=== PATIENT | female | born 1980 ===

== ENCOUNTER 2018-02-02 19:11 | Emergency (ER) | payer BC ==
[2018-02-02] MEDS ORDERED: Iohexol 240 (50 ml) PO ONE (21:22)
[2018-02-02] MEDS ORDERED: Lactated Ringer's 1,000 ML IV STA (21:24)
--- NOTE | 2018-02-02 21:35 | ED PDOC ---
HPI: Abdomen Time Seen by Provider: 02/02/18 20:40 Chief Complaint (Nursing): GI Problem Chief Complaint (Provider): bloody diarrhea History Per: Patient History/Exam Limitations: no limitations Onset/Duration Of Symptoms: Days (1 month), Gradual Outside of [place] travel?: Yes Other Location:: [place], early December Location Of Pain/Discomfort: RLQ, LLQ Quality Of Discomfort: Cramping Associated Symptoms: Diarrhea. denies: Fever, Chills, Nausea, Vomiting, Loss Of Appetite Exacerbating Factors: None Additional Complaint(s): Bloody stool for about a month. Initially associated with rectal discomfort. Seen by [facility] and rx'd hemorrhoid cream, which improved discomfort but now has episodic diarrhea and continued bloody stool. Over last week has developed abdominal crampy pain with the diarrhea as well. Has about 1-3 diarrheal bowel movements daily. Past Medical History Reviewed: Historical Data, Nursing Documentation, Vital Signs Vital Signs: Last Vital Signs Temp 98.4 F 02/03/18 00:52 Pulse 72 02/03/18 00:52 Resp 18 02/03/18 00:52 BP 102/68 02/03/18 00:52 Pulse Ox 100 02/06/18 22:00 - Medical History PMH: No Chronic Diseases - Family History Family History: States: No Known Family Hx - Social History Current smoker - smoking cessation education provided: No Alcohol: Social Drugs: Denies - Home Medications Home Medications: Ambulatory Orders Medication Instructions Recorded Ciprofloxacin [Cipro] 500 mg PO BID 7 Days tab 02/03/18 metroNIDAZOLE [Flagyl] 500 mg PO BID 7 Days tab 02/03/18 - Allergies Allergies/Adverse Reactions: Allergies Allergy/AdvReac Type Severity Reaction Status Date / Time pollen extracts Allergy ITCHING Verified 02/02/18 19:56 Review of Systems ROS Statement: Except As Marked, All Systems Reviewed And Found Negative (and as per HPI) Constitutional: Negative for: Fever, Weakness, Malaise Gastrointestinal: Positive for: Abdominal Pain, Diarrhea, Hematochezia, Rectal Pain. Negative for: Nausea, Vomiting, Constipation, Melena, Hematemesis Genitourinary Female: Negative for: Vaginal Bleeding Physical Exam - Reviewed Nursing Documentation Reviewed: Yes Vital Signs Reviewed: Yes - Physical Exam Appears: Positive for: Non-toxic, No Acute Distress Head Exam: Positive for: ATRAUMATIC, NORMOCEPHALIC Skin: Positive for: Warm, Dry Eye Exam: Positive for: EOMI, PERRL ENT: Negative for: Pharyngeal Erythema, Tonsillar Exudate Neck: Positive for: Painless ROM, Supple Cardiovascular/Chest: Positive for: Regular Rate, Rhythm, Chest Non Tender. Negative for: Murmur Respiratory: Positive for: Normal Breath Sounds. Negative for: Wheezing Gastrointestinal/Abdominal: Positive for: Bowel Sounds, Soft. Negative for: Tenderness, Mass, Distended, Guarding, Rebound Back: Positive for: Normal Inspection. Negative for: Decreased ROM Rectal: Positive for: Rectal Tone Is: (normal). Negative for: Hemorrhoids, Mass Extremity: Positive for: Normal ROM. Negative for: Deformity Lymphatic: Negative for: Adenopathy Neurologic/Psych: Positive for: Alert. Negative for: Motor/Sensory Deficits - Laboratory Results Result Diagrams: 02/02/18 21:50 02/02/18 21:50 - ECG O2 Sat by Pulse Oximetry: 100 Disposition - Clinical Impression Clinical Impression: Abdominal pain - Disposition Disposition: Transfer of Care Disposition Time: 00:00 Condition: STABLE Prescriptions: Ciprofloxacin [Cipro] 500 mg PO BID 7 Days tab metroNIDAZOLE [Flagyl] 500 mg PO BID 7 Days tab Patient Signed Over To: Flo Hussein Handoff Comments: Pending ER workup, reassessment and final ER disposition
[2018-02-02] MEDS ORDERED: Iohexol 240 (50 ml) ONE (21:39)
[2018-02-02 22:19] LABS: BASO # 0.1 K/uL (0.0-0.2); BASO % 0.7 % (0.0-2.0); EOS # 0.2 K/uL (0.0-0.7); EOS % 2.6 % (0.0-4.0); HEMOGLOBIN 14.1 g/dL (12.0-16.0); LYMPH # 2.9 K/uL (1.0-4.3); LYMPH % 36.9 % (20.0-40.0); MEAN CELL VOLUME 90.5 fl (81.0-99.0); MEAN CORPUSCULAR HEMOGLOBIN 30.5 pg (27.0-31.0); MEAN CORPUSCULAR HGB CONC 33.7 g/dL (33.0-37.0); MONO # 0.5 K/uL (0.0-0.8); NEUT # 4.1 K/uL (1.8-7.0); NEUT % 52.8 % (50.0-75.0); RBC 4.61 Mil/uL (3.80-5.20); RED CELL DISTRIBUTION WIDTH 13.6 % (11.5-14.5); WHITE BLOOD COUNT 7.8 K/uL (4.8-10.8)
[2018-02-02 22:30] LABS: INR 0.9 (0.9-1.2); PROTHROMBIN TIME 9.9 Seconds (9.8-13.1)
[2018-02-02 22:35] LABS: ALB/GLOB RATIO 1.1 (1.0-2.1); ALBUMIN 3.9 g/dL (3.5-5.0); ALT/SGPT 30 U/L (9-52); AST/SGOT 26 U/L (14-36); BLOOD UREA NITROGEN 14 mg/dl (7-17); GFR AFRICAN-AMERICAN > 60; GFR NON-AFRICAN AMERICAN > 60; LIPASE 63 U/L (23-300)
[2018-02-02] MEDS ORDERED: Iohexol 300 100 ML IJ ONE (23:38)
[2018-02-02] MEDS ORDERED: Sodium Chloride 0.9% 50 ML IV ONE (23:39)
--- NOTE | 2018-02-03 00:06 | ED PDOC ---
- Laboratory Results Result Diagrams: 02/02/18 21:50 02/02/18 21:50 - ECG O2 Sat by Pulse Oximetry: 100 Medical Decision Making Medical Decision Makin Patient signed out to this provider from Dr. Connor pending CT scan. 0038 CT FINDINGS: LIMITATIONS: Mild streak/motion artifact. LUNG BASES: No significant abnormality seen. ABDOMEN: LIVER: No acute abnormality of the liver identified. GALLBLADDER AND BILE DUCTS: No CT evidence of acute cholecystitis. No evidence of significant biliary ductal dilatation. PANCREAS: No CT evidence of acute pancreatitis. SPLEEN: No acute abnormality of the spleen identified. ADRENALS: No acute abnormality of the adrenal glands identified. KIDNEYS AND URETERS: No acute abnormality of the kidneys identified. No evidence of significant hydrouereteronephrosis. STOMACH AND BOWEL: Moderate wall thickening and enhancement of the distal sigmoid colon and rectum. Findings are suspicious for proctocolitis. Otherwise, no significant abnormality of the bowel is identified. No evidence of diffuse colitis/pancolitis. No evidence of bowel obstruction.. PELVIS: APPENDIX: Normal appendix is not seen, however, there are no significant inflammatory changes visualized in the expected location of the appendix to suggest appendicitis. Recommend clinical correlation. BLADDER: No acute abnormality of the bladder identified. REPRODUCTIVE:No acute abnormality of the reproductive organs is seen. No acute abnormality of the uterus identified. No evidence of large adnexal masses. ABDOMEN and PELVIS: INTRAPERITONEAL SPACE: No evidence of free intraperitoneal air or fluid. BONES/JOINTS: No acute fractures or other acute bony abnormality noted. SOFT TISSUES: No acute abnormality of the visualized soft tissues is seen. VASCULATURE: No evidence of abdominal aortic aneurysm. No evidence of periaortic hemorrhage. LYMPH NODES: No evidence of diffuse lymphadenopathy. IMPRESSION: - Findings suspicious for proctocolitis involving the distal sigmoid colon and rectum. Recommend clinical correlation. - Otherwise, no evidence of significant acute process. Appendix is not seen, however. - See above for remaining findings Scribe Attestation: Documented by Nevaeh Kyle acting as a scribe for Flo Hussein MD. Scrib[place]amie Attestation: All medical record entries made by the Scribe were at my direction and personally dictated by me. I have reviewed the chart and agree that the record accurately reflects my personal performance of the history, physical exam, medical decision making, and the department course for this patient. I have also personally directed, reviewed, and agree with the discharge instructions and disposition. Disposition - Disposition Forms: [employer] ([place])
--- NOTE | 2018-02-03 00:38 | CT ---
EXAM: CT Abdomen and Pelvis With Intravenous Contrast EXAM DATE/TIME: 02/02/2018 9:22 PM CLINICAL HISTORY: 37 years old, female; Pain; Abdominal pain; Localized; Lower; Additional info: Lower abd pain bloody stool TECHNIQUE: Axial computed tomography images of the abdomen and pelvis with intravenous contrast. All CT scans at this facility use one or more dose reduction techniques, viz.: automated exposure control; ma/kV adjustment per patient size (including targeted exams where dose is matched to indication; i.e. head); or iterative reconstruction technique. Coronal and sagittal reformatted images were created and reviewed. CONTRAST: 90 mL of [id number] administered intravenously. COMPARISON: No relevant prior studies available. FINDINGS: LIMITATIONS: Mild streak/motion artifact. LUNG BASES: No significant abnormality seen. ABDOMEN: LIVER: No acute abnormality of the liver identified. GALLBLADDER AND BILE DUCTS: No CT evidence of acute cholecystitis. No evidence of significant biliary ductal dilatation. PANCREAS: No CT evidence of acute pancreatitis. SPLEEN: No acute abnormality of the spleen identified. ADRENALS: No acute abnormality of the adrenal glands identified. KIDNEYS AND URETERS: No acute abnormality of the kidneys identified. No evidence of significant hydrouereteronephrosis. STOMACH AND BOWEL: Moderate wall thickening and enhancement of the distal sigmoid colon and rectum. Findings are suspicious for proctocolitis. Otherwise, no significant abnormality of the bowel is identified. No evidence of diffuse colitis/pancolitis. No evidence of bowel obstruction.. PELVIS: APPENDIX: Normal appendix is not seen, however, there are no significant inflammatory changes visualized in the expected location of the appendix to suggest appendicitis. Recommend clinical correlation. BLADDER: No acute abnormality of the bladder identified. REPRODUCTIVE:No acute abnormality of the reproductive organs is seen. No acute abnormality of the uterus identified. No evidence of large adnexal masses. ABDOMEN and PELVIS: INTRAPERITONEAL SPACE: No evidence of free intraperitoneal air or fluid. BONES/JOINTS: No acute fractures or other acute bony abnormality noted. SOFT TISSUES: No acute abnormality of the visualized soft tissues is seen. VASCULATURE: No evidence of abdominal aortic aneurysm. No evidence of periaortic hemorrhage. LYMPH NODES: No evidence of diffuse lymphadenopathy. IMPRESSION: - Findings suspicious for proctocolitis involving the distal sigmoid colon and rectum. Recommend clinical correlation. - Otherwise, no evidence of significant acute process. Appendix is not seen, however. - See above for remaining findings.
[2018-02-03 00:53] VITALS: BP 102/68; PULSE 72; RESP 18; TEMP 98.4
[2018-02-06 22:00] VITALS: O2SAT 100
== END 2018-02-03 01:00 | disposition home or self-care (01) ==
LOC: H.ER 19:11
DX: R10.9 Unspecified abdominal pain (principal)
CPT/HCPCS: 74177; 80053; 81025; 83690; 85025; 85610; 85730; 86850; 86900; 99283; J7120; Q9966; Q9967

== ENCOUNTER 2018-02-14 15:32 | Observation (INO) | payer BC ==
[2018-02-14] MEDS ORDERED: Sodium Chloride 0.9% 1,000 ML IV STA ×2 (16:13→20:02)
--- NOTE | 2018-02-14 16:16 | ED PDOC ---
HPI: General Adult Time Seen by Provider: 02/14/18 15:50 Chief Complaint (Nursing): Abdominal Pain History Per: Patient Additional Complaint(s): Pt. states for the past 2 weeks she's had water diarrhea with bright red blood ( 3-4 episodes per day). She was initially seen in ED on 02/03/[address] which showed colitis. At that time she was prescribed Cipro and Flagyl. F/u with Dr. Lugo, GI, on 02/11/2018 and was advised to take probiotics and she has a scheduled colonoscopy on 02/17/2018. Bloody watery diarrhea has persisted. Also reports abdominal pain which present only when attempt to defecate. Denies rectal pain, vomiting, nausea, hematemesis, fever, hx of previous GI bleed, weakness, anticoagulant use, NSAID use. Past Medical History Reviewed: Historical Data, Nursing Documentation, Vital Signs Vital Signs: Last Vital Signs Temp 98.3 F 02/14/18 15:44 Pulse 63 02/14/18 15:44 Resp 16 02/14/18 15:44 BP 126/83 02/14/18 15:44 Pulse Ox 100 02/14/18 20:02 - Surgical History Surgical History: No Surg Hx - Family History Family History: States: No Known Family Hx - Home Medications Home Medications: Ambulatory Orders Medication Instructions Recorded No Known Home Med 02/14/18 - Allergies Allergies/Adverse Reactions: Allergies Allergy/AdvReac Type Severity Reaction Status Date / Time pollen extracts Allergy ITCHING Verified 02/02/18 19:56 Review of Systems ROS Statement: Except As Marked, All Systems Reviewed And Found Negative Gastrointestinal: Positive for: Abdominal Pain Physical Exam - Physical Exam Appears: Positive for: Well, Non-toxic, No Acute Distress Skin: Positive for: Normal Color, Warm. Negative for: Rash Eye Exam: Positive for: Normal appearance Gastrointestinal/Abdominal: Positive for: Normal Exam, Soft. Negative for: Tenderness Back: Positive for: Normal Inspection. Negative for: L CVA Tenderness, R CVA Tenderness Neurologic/Psych: Positive for: Alert, Oriented - Laboratory Results Result Diagrams: 02/14/18 16:30 02/14/18 16:30 Urine POC: Negative - ECG O2 Sat by Pulse Oximetry: 100 - Progress ED Course And Treament: Labs, IV NS bolus x 1 ordered. Rectal: no hemorrhoids; fani bright red blood noted on CASSIE; no active bleeding ; rectal tone intact (Daniella RN present during entire rectal exam as target setter) . Case d/w Dr. Andre who recommends 23 hour observation. Case d/w Dr. Rothman, GI, covering for Dr. Dejesus who recommends Protonix IV, NPO after midnight and will see patient in the AM. No imaging tests or abx recommended. Pt. informed of plan and agrees with care. Case d/w Dr. Thornton med weed control inspector, and arrangements made for 23 hour observation. Disposition - Clinical Impression Clinical Impression: GI (gastrointestinal bleed) - Patient ED Disposition Is Patient to be Admitted: Yes - Disposition Disposition Time: 19:02 Condition: STABLE Forms: [employer] ([place]) - Pt Status Changed To: Hospital Disposition Of: Observation
[2018-02-14 16:37] LABS: BASO # 0.1 K/uL (0.0-0.2); BASO % 0.7 % (0.0-2.0); EOS # 0.3 K/uL (0.0-0.7); EOS % 3.2 % (0.0-4.0); HEMOGLOBIN 14.3 g/dL (12.0-16.0); LYMPH # 2.8 K/uL (1.0-4.3); MEAN CELL VOLUME 91.4 fl (81.0-99.0); MEAN CORPUSCULAR HEMOGLOBIN 30.2 pg (27.0-31.0); MEAN CORPUSCULAR HGB CONC 33.1 g/dL (33.0-37.0); MEAN PLATELET VOLUME 7.7 fl (7.2-11.7); MONO # 0.7 K/uL (0.0-0.8); NEUT # 4.4 K/uL (1.8-7.0); NEUT % 53.1 % (50.0-75.0); RBC 4.72 Mil/uL (3.80-5.20); RED CELL DISTRIBUTION WIDTH 13.6 % (11.5-14.5); WHITE BLOOD COUNT 8.2 K/uL (4.8-10.8)
[2018-02-14 16:53] LABS: PARTIAL THROMBOPLASTIN TIME 27.2 Seconds (25.6-37.1); PROTHROMBIN TIME 10.9 Seconds (9.8-13.1)
[2018-02-14 16:57] LABS: SQUAMOUS EPITHIAL 4 /hpf (0-5); URINE BILIRUBIN NEGATIVE (NEGATIVE); URINE BLOOD NEGATIVE (NEGATIVE); URINE CLARITY CLEAR (Clear); URINE COLOR YELLOW (YELLOW); URINE GLUCOSE (UA) NEG (Normal); URINE LEUKOCYTE ESTERASE NEG Leu/uL (Negative); URINE PROTEIN NEGATIVE (NEGATIVE); URINE UROBILINOGEN 0.2-1.0 mg/dL (0.2-1.0)
[2018-02-14 17:03] LABS: ALB/GLOB RATIO 1.2 (1.0-2.1); ALBUMIN 4.1 g/dL (3.5-5.0); ALT/SGPT 29 U/L (9-52); AST/SGOT 32 U/L (14-36); BLOOD UREA NITROGEN 11 mg/dl (7-17); CALCIUM 8.8 mg/dL (8.4-10.2); GFR AFRICAN-AMERICAN > 60; GFR NON-AFRICAN AMERICAN > 60
[2018-02-14] MEDS ORDERED: Pantoprazole 40 MG in Sodium Chloride 0.9% 100 ML IVPB STA (18:53)
[2018-02-14 21:15] VITALS: RESP 18
[2018-02-15 01:16] VITALS: O2SAT 97
[2018-02-15] MEDS ORDERED: metroNIDAZOLE 500mg/100ml NS 100 ML IVPB SCH (09:00)
[2018-02-15] MEDS ORDERED: metroNIDAZOLE 500mg/100ml NS IVPB SCH (09:00)
[2018-02-15] MEDS ORDERED: Ciprofloxacin 400mg/200ml D5W 400 MG/200 ML BAG IVPB SCH (09:00)
[2018-02-15 10:30] LABS: HEMOGLOBIN 12.5 g/dL (12.0-16.0); MEAN CELL VOLUME 91.3 fl (81.0-99.0); MEAN CORPUSCULAR HEMOGLOBIN 30.2 pg (27.0-31.0); MEAN CORPUSCULAR HGB CONC 33.1 g/dL (33.0-37.0); RBC 4.15 Mil/uL (3.80-5.20); RED CELL DISTRIBUTION WIDTH 13.6 % (11.5-14.5); WHITE BLOOD COUNT 7.8 K/uL (4.8-10.8)
[2018-02-15 10:43] VITALS: BP 103/67; PULSE 65; TEMP 97.6
--- NOTE | 2018-02-15 12:18 | CP.PCM.CON ---
<Edyta Bowling - Last Filed: 02/15/18 12:12> History of Present Illness - History of Present Illness History of Present Illness: GI Fellow PGY4 Consult Note This is a 37yF with no significant past medical history presenting with complaints of bloody diarrhea for two weeks. Pt states for the past 2 weeks she' s had water diarrhea with bright red blood (3-4 episodes per day). She was initially seen in ED on 02/03/[address] which showed protocolitis. At that time she was discharged from the ER on Cipro and Flagyl. She reports she completed all the abx but it did not help her symptoms. She did fu with Dr. Lugo GI, on 02/11/2018 and has a scheduled colonoscopy on 02/17/2018. Also reports abdominal pain which present only when attempt to defecate. Denies rectal pain, vomiting, nausea, hematemesis, fever, hx of previous GI bleed, weakness, anticoagulant use, NSAID use. Pt denies any recent abx use, no recent travel, and no sick contacts. No prior colonoscopy or EGD. Pt denies any extraintestinal symptoms like rash, joint pain, ulcers, uveitis. No family of of IBD. Per the ER, pt had red blood on rectal exam. Pt reports no bloody BM since admission. ROS: A 12pt ROS was negative except as above PmHX: As stated in HPI PsHx: Denies SHx: neg for tobacco, etoh, drugs FHx: neg for colon cancer, IBD Past Patient History - Past Medical History & Family History Past Medical History?: No - Past Social History Smoking Status: Never Smoked - CARDIAC Hx Cardiac Disorders: No - PULMONARY Hx Respiratory Disorders: No - NEUROLOGICAL Hx Neurological Disorder: No - HEENT Hx HEENT Problems: No - RENAL Hx Chronic Kidney Disease: No - ENDOCRINE/METABOLIC Hx Endocrine Disorders: No - HEMATOLOGICAL/ONCOLOGICAL Hx Blood Disorders: No Hx AIDS: No Hx Human Immunodeficiency Virus (HIV): No - INTEGUMENTARY Hx Dermatological Problems: No - MUSCULOSKELETAL/RHEUMATOLOGICAL Hx Musculoskeletal Disorders: No Hx Falls: No - GASTROINTESTINAL Hx Gastrointestinal Disorders: No - GENITOURINARY/GYNECOLOGICAL Hx Genitourinary Disorders: No - PSYCHIATRIC Hx Psychophysiologic Disorder: No Hx Substance Use: No - SURGICAL HISTORY Hx Surgeries: No - ANESTHESIA Hx Anesthesia: No Hx Anesthesia Reactions: No Meds Allergies/Adverse Reactions: Allergies Allergy/AdvReac Type Severity Reaction Status Date / Time pollen extracts Allergy ITCHING Verified 02/02/18 19:56 - Medications Medications: Current Medications Ciprofloxacin (Cipro 400mg/200ml Dsw) 400 mg in 200 mls @ 200 mls/hr IVPB Q12 [facility] PRN Reason: Protocol Last Admin: 02/15/18 10:11 Dose: 200 mls/hr Metronidazole (Flagyl 500mg/100ml Ns) 100 mls @ 100 mls/hr IVPB Q8 [facility] Last Admin: 02/15/18 10:10 Dose: 100 mls/hr Physical Exam - Constitutional Appears: Non-toxic, No Acute Distress - Head Exam Head Exam: ATRAUMATIC, NORMAL INSPECTION, NORMOCEPHALIC - Eye Exam Eye Exam: EOMI, Normal appearance, PERRL Pupil Exam: PERRL - ENT Exam ENT Exam: Mucous Membranes Moist, Normal Exam - Neck Exam Neck exam: Positive for: Normal Inspection - Respiratory Exam Respiratory Exam: Clear to Auscultation Bilateral, NORMAL BREATHING PATTERN - Cardiovascular Exam Cardiovascular Exam: REGULAR RHYTHM, RRR - GI/Abdominal Exam GI & Abdominal Exam: Normal Bowel Sounds, Soft. absent: Distended, Guarding, Organomegaly, Tenderness - Rectal Exam Rectal Exam: Deferred - Extremities Exam Extremities exam: Positive for: full ROM, normal inspection - Back Exam Back exam: NORMAL INSPECTION - Neurological Exam Neurological exam: Alert, Oriented x3 - Psychiatric Exam Psychiatric exam: Normal Affect, Normal Mood Results - Vital Signs Recent Vital Signs: Last Vital Signs Temp 97.6 F 02/15/18 10:51 Pulse 65 02/15/18 10:51 Resp 18 02/15/18 10:51 BP 103/67 02/15/18 10:51 Pulse Ox 97 02/15/18 10:51 - Labs Result Diagrams: 02/15/18 07:56 02/14/18 16:30 Labs: Laboratory Results - last 24 hr 02/14/18 02/14/18 02/14/18 16:30 16:30 16:30 WBC 8.2 RBC 4.72 Hgb 14.3 Hct 43.2 MCV 91.4 MCH 30.2 MCHC 33.1 RDW 13.6 Plt Count 380 MPV 7.7 Neut % (Auto) 53.1 Lymph % (Auto) 34.0 Dare % (Auto) 9.0 Eos % (Auto) 3.2 Baso % (Auto) 0.7 Neut # (Auto) 4.4 Lymph # (Auto) 2.8 Dare # (Auto) 0.7 Eos # (Auto) 0.3 Baso # (Auto) 0.1 PT 10.9 INR 1.0 APTT 27.2 Sodium 139 Potassium 4.5 Chloride 100 Carbon Dioxide 30 Anion Gap 14 BUN 11 Creatinine 0.8 Est GFR ( Amer) > 60 Est GFR (Non-Af Amer) > 60 Random Glucose 96 Calcium 8.8 Total Bilirubin 0.6 AST 32 ALT 29 Alkaline Phosphatase 61 Total Protein 7.6 Albumin 4.1 Globulin 3.6 Albumin/Globulin Ratio 1.2 Vitamin B12 TSH 3rd Generation Urine Color Urine Clarity Urine pH Ur Specific [place] Urine Protein Urine Glucose (UA) Urine Ketones Urine Blood Urine Nitrate Urine Bilirubin Urine Urobilinogen Ur Leukocyte Esterase Ur Squamous Epith Cells Stool Occult Blood Blood Type Antibody Screen BBK History Checked 02/14/18 02/14/18 02/14/18 16:30 16:30 17:28 WBC RBC Hgb Hct MCV MCH MCHC RDW Plt Count MPV Neut % (Auto) Lymph % (Auto) Dare % (Auto) Eos % (Auto) Baso % (Auto) Neut # (Auto) Lymph # (Auto) Dare # (Auto) Eos # (Auto) Baso # (Auto) PT INR APTT Sodium Potassium Chloride Carbon Dioxide Anion Gap BUN Creatinine Est GFR ( Amer) Est GFR (Non-Af Amer) Random Glucose Calcium Total Bilirubin AST ALT Alkaline Phosphatase Total Protein Albumin Globulin Albumin/Globulin Ratio Vitamin B12 TSH 3rd Generation Urine Color Yellow Urine Clarity Clear Urine pH 6.0 Ur Specific [place] 1.015 Urine Protein Negative Urine Glucose (UA) Neg Urine Ketones Negative Urine Blood Negative Urine Nitrate Negative Urine Bilirubin Negative Urine Urobilinogen 0.2-1.0 Ur Leukocyte Esterase Neg Ur Squamous Epith Cells 4 Stool Occult Blood Positive H Blood Type AB POSITIVE Antibody Screen Negative BBK History Checked Patient has bt 02/15/18 02/15/18 07:56 07:56 WBC 7.8 RBC 4.15 Hgb 12.5 Hct 37.9 MCV 91.3 MCH 30.2 MCHC 33.1 RDW 13.6 Plt Count 334 MPV Neut % (Auto) Lymph % (Auto) Dare % (Auto) Eos % (Auto) Baso % (Auto) Neut # (Auto) Lymph # (Auto) Dare # (Auto) Eos # (Auto) Baso # (Auto) PT INR APTT Sodium Potassium Chloride Carbon Dioxide Anion Gap BUN Creatinine Est GFR ( Amer) Est GFR (Non-Af Amer) Random Glucose Calcium Total Bilirubin AST ALT Alkaline Phosphatase Total Protein Albumin Globulin Albumin/Globulin Ratio Vitamin B12 332 TSH 3rd Generation 1.79 Urine Color Urine Clarity Urine pH Ur Specific [place] Urine Protein Urine Glucose (UA) Urine Ketones Urine Blood Urine Nitrate Urine Bilirubin Urine Urobilinogen Ur Leukocyte Esterase Ur Squamous Epith Cells Stool Occult Blood Blood Type Antibody Screen BBK History Checked Assessment & Plan - Assessment and Plan (Free Text) Assessment: This is a 37yF with no past medical hx presenting with complaints of bloody diarrhea. 1. Proctocolitis 2. Bloody Diarrhea Plan: -Continue supportive care with pain control and anti-emetics -No active GI bleeding, no more bloody BM or abdominal pain -Hgb stable -Advance diet to regular food -IVF hydration -No need for abx at this time as pt was treated with cipro/flagyl with no change , maybe inflammatory not infectious -Plan for Colonoscopy with private GI on Saturday -No further GI intervention at this pt -Pt okay for discharge home <Jocelyn Dejesus - Last Filed: 02/15/18 12:33> Meds - Medications Medications: Current Medications Ciprofloxacin (Cipro 400mg/200ml Dsw) 400 mg in 200 mls @ 200 mls/hr IVPB Q12 [facility] PRN Reason: Protocol Last Admin: 02/15/18 10:11 Dose: 200 mls/hr Metronidazole (Flagyl 500mg/100ml Ns) 100 mls @ 100 mls/hr IVPB Q8 [facility] Last Admin: 02/15/18 10:10 Dose: 100 mls/hr Results - Vital Signs Recent Vital Signs: Last Vital Signs Temp 97.6 F 02/15/18 10:51 Pulse 65 02/15/18 10:51 Resp 18 02/15/18 10:51 BP 103/67 02/15/18 10:51 Pulse Ox 97 02/15/18 10:51 - Labs Result Diagrams: 02/15/18 07:56 02/14/18 16:30 Labs: Laboratory Results - last 24 hr 0602/14/18 02/14/18 16:30 16:30 16:30 WBC 8.2 RBC 4.72 Hgb 14.3 Hct 43.2 MCV 91.4 MCH 30.2 MCHC 33.1 RDW 13.6 Plt Count 380 MPV 7.7 Neut % (Auto) 53.1 Lymph % (Auto) 34.0 Dare % (Auto) 9.0 Eos % (Auto) 3.2 Baso % (Auto) 0.7 Neut # (Auto) 4.4 Lymph # (Auto) 2.8 Dare # (Auto) 0.7 Eos # (Auto) 0.3 Baso # (Auto) 0.1 PT 10.9 INR 1.0 APTT 27.2 Sodium 139 Potassium 4.5 Chloride 100 Carbon Dioxide 30 Anion Gap 14 BUN 11 Creatinine 0.8 Est GFR ( Amer) > 60 Est GFR (Non-Af Amer) > 60 Random Glucose 96 Calcium 8.8 Total Bilirubin 0.6 AST 32 ALT 29 Alkaline Phosphatase 61 Total Protein 7.6 Albumin 4.1 Globulin 3.6 Albumin/Globulin Ratio 1.2 Vitamin B12 TSH 3rd Generation Urine Color Urine Clarity Urine pH Ur Specific [place] Urine Protein Urine Glucose (UA) Urine Ketones Urine Blood Urine Nitrate Urine Bilirubin Urine Urobilinogen Ur Leukocyte Esterase Ur Squamous Epith Cells Stool Occult Blood Blood Type Antibody Screen BBK History Checked 02/14/18 02/14/18 02/14/18 16:30 16:30 17:28 WBC RBC Hgb Hct MCV MCH MCHC RDW Plt Count MPV Neut % (Auto) Lymph % (Auto) Dare % (Auto) Eos % (Auto) Baso % (Auto) Neut # (Auto) Lymph # (Auto) Dare # (Auto) Eos # (Auto) Baso # (Auto) PT INR APTT Sodium Potassium Chloride Carbon Dioxide Anion Gap BUN Creatinine Est GFR ( Amer) Est GFR (Non-Af Amer) Random Glucose Calcium Total Bilirubin AST ALT Alkaline Phosphatase Total Protein Albumin Globulin Albumin/Globulin Ratio Vitamin B12 TSH 3rd Generation Urine Color Yellow Urine Clarity Clear Urine pH 6.0 Ur Specific [place] 1.015 Urine Protein Negative Urine Glucose (UA) Neg Urine Ketones Negative Urine Blood Negative Urine Nitrate Negative Urine Bilirubin Negative Urine Urobilinogen 0.2-1.0 Ur Leukocyte Esterase Neg Ur Squamous Epith Cells 4 Stool Occult Blood Positive H Blood Type AB POSITIVE Antibody Screen Negative BBK History Checked Patient has bt 02/15/18 02/15/18 07:56 07:56 WBC 7.8 RBC 4.15 Hgb 12.5 Hct 37.9 MCV 91.3 MCH 30.2 MCHC 33.1 RDW 13.6 Plt Count 334 MPV Neut % (Auto) Lymph % (Auto) Dare % (Auto) Eos % (Auto) Baso % (Auto) Neut # (Auto) Lymph # (Auto) Dare # (Auto) Eos # (Auto) Baso # (Auto) PT INR APTT Sodium Potassium Chloride Carbon Dioxide Anion Gap BUN Creatinine Est GFR ( Amer) Est GFR (Non-Af Amer) Random Glucose Calcium Total Bilirubin AST ALT Alkaline Phosphatase Total Protein Albumin Globulin Albumin/Globulin Ratio Vitamin B12 332 TSH 3rd Generation 1.79 Urine Color Urine Clarity Urine pH Ur Specific [place] Urine Protein Urine Glucose (UA) Urine Ketones Urine Blood Urine Nitrate Urine Bilirubin Urine Urobilinogen Ur Leukocyte Esterase Ur Squamous Epith Cells Stool Occult Blood Blood Type Antibody Screen BBK History Checked Attending/Attestation - Attestation I have personally seen and examined this patient.: Yes I have fully participated in the care of the patient.: Yes I have reviewed all pertinent clinical information: Yes Notes (Text): 02/15/18 12:31 Patient seen on rounds this am. This is a 37 year old F with no past medical hx presenting with complaints of bloody diarrhea likely proctocolitis now resolved. Has scheduled colonoscopy with Dr Xiong at his [facility] on Saturday. reiterated to the patient to follow with the GI for colonoscopy. Regular diet. Hg stable with no bleeding. Clear liquid diet. can be discharged
--- NOTE | 2018-02-15 18:54 | HP ---
CHIEF COMPLAINT: Blood in stool and abdominal pain. HISTORY OF PRESENT ILLNESS: This is a 37-year-old female without significant past medical history, who was having diarrhea with blood for few days about three to four episodes per day, the blood got significant. The patient was brought to emergency room and was admitted for further management. The patient had similar episode and had seen by primary care at and is scheduled for colonoscopy on . REVIEW OF SYSTEMS: Positive for abdominal pain and blood in stool. Review of systems otherwise is negative for headache, dizziness, syncope, loss of consciousness, chest pain, shortness of breath, nausea, vomiting, diarrhea, constipation, any new joint or extremity pain. Review of systems of all other organ systems is unremarkable. The patient was diagnosed with colitis and was given Levaquin and Cipro. PAST MEDICAL HISTORY: Remarkable for questionable colitis. PAST SURGICAL HISTORY: Unremarkable. PERSONAL HISTORY: Noncontributory. MEDICATIONS: The patient was on Levaquin and Flagyl. ALLERGIES: THE PATIENT IS NOT ALLERGIC TO ANY MEDICATION. PHYSICAL EXAMINATION: GENERAL: Well-built, well-nourished, 37-year-old female, in no acute distress. VITAL SIGNS: Temperature 98.2, pulse 70, respirations 18, blood pressure 93/53, saturation is 97%. HEENT: Pupils reacting to light. No JVD. No thyromegaly. No lymphadenopathy. No nystagmus. Normocephalic and atraumatic skull. HEART: S1 and S2, normal and regular. No significant murmur, gallop, or rub is heard. LUNGS: Shows good bilateral air entry. No rales or rhonchi. ABDOMEN: Soft and nontender. No organomegaly. No fluids. Bowel sounds are plus and normal. EXTREMITIES: No edema. No calf swelling. No tenderness. No acute ischemia. INSPECTOR DIALS: The patient is alert, awake, and oriented x3. There is no sign of any acute gross focal motor or sensory neurological deficits. IMPRESSION: Gastrointestinal bleed and colitis. PLAN: As ordered. Case and plan discussed with the patient. Jacky Thornton MD
== END 2018-02-15 13:09 | disposition home or self-care (01) ==
LOC: H.ER 15:32 → H.ERHOLD 20:11 → H.MEDSURG1 21:30
PROVIDERS: ADMIT Internal Medicine; ATTEND Internal Medicine
DX: K52.9 Noninfective gastroenteritis and colitis, unspecified (principal)
CPT/HCPCS: 36415; 80053; 81003; 81025; 82607; 84443; 85025; 85027; 85610; 85730; 86850; 86900; 99285; C9113; G0328; G0378; J0744; J7030